=== PATIENT | male | born 1985 | race Caucasian/White ===

== ENCOUNTER 2016-11-28 16:16 | Emergency (ER) | payer BC ==
--- NOTE | 2016-11-28 17:08 | ER Document Report ---
ED Neck/Back Problem <PEGGY WALTON - Last Filed: 11/28/16 21:57> - General Time seen by provider: 16:30 Mode of Arrival: Ambulatory Information source: Patient TRAVEL OUTSIDE OF THE [place] IN LAST 30 DAYS: No - HPI Patient complains to provider of: Pain, Upper back Onset: Other - See above note Where: Work Onset: Gradual Timing: Still present Quality of pain: Sharp, Throbbing Severity: Moderate Pain Level: 4 Context: Other - Cough off and on for 4 weeks Recent injury: Possibly Associated symptoms: Upper back pain Exacerbated by: Cough/deep breaths, Movement of trunk Relieved by: Nothing Similar symptoms previously: Yes Recently seen / treated by doctor: No <ANIKA ROQUE - Last Filed: 11/29/16 07:08> - General Chief Complaint: Back Pain Stated Complaint: BACK PAIN Notes: 30-year-old male presents to ED for lower back pain on the left. He states a month ago he was diagnosed with flu and was coughing for week and had a start stomach virus and was vomiting for week then he got a cold again and was coughing for week so now he's been coughing or vomiting for the last 4 weeks and his back is been hurting off and on he states today when he coughed real hard he felt a large pop in his left lower back which took him to the floor with pain. (ANIKA ROQUE) - Related Data Allergies/Adverse Reactions: No Known Allergies Allergy (Unverified 11/28/16 19:35) Past Medical History - General Information source: Patient - Social History Smoking Status: Former Smoker Cigarette use (# per day): No - states he vaps at times Chew tobacco use (# tins/day): No Smoking Education Provided: No Frequency of alcohol use: Social Drug Abuse: None Occupation: mechanical design Lives with: Family Family History: DM, Hyperlipidemia, Hypertension, Malignancy, Thyroid Disfunction Patient has suicidal ideation: No - Past Medical History Cardiac Medical History: Reports: Hx Hypertension Pulmonary Medical History: Reports: Hx Asthma EENT Medical History: Reports: None Neurological Medical History: Reports: None Endocrine Medical History: Reports: None Renal/ Medical History: Reports: None Malignancy Medical History: Reports None GI Medical History: Reports: None Musculoskeltal Medical History: Reports Hx Musculoskeletal Trauma - Right third finger Skin Medical History: Reports None Psychiatric Medical History: Reports: None Traumatic Medical History: Reports: Hx Fractures - Right third finger Infectious Medical History: Reports: None Past Surgical History: Reports: Hx Abdominal Surgery - LAP-BAND and then revision of a lap band, Hx Orthopedic Surgery - Knee surgery - Immunizations Hx Diphtheria, Pertussis, Tetanus Vaccination: Yes <ANIKA ROQUE - Last Filed: 11/29/16 07:08> Review of Systems - Review of Systems Constitutional: No symptoms reported EENT: Nose discharge, Sinus discharge Cardiovascular: No symptoms reported Respiratory: Cough Gastrointestinal: No symptoms reported Genitourinary: No symptoms reported Male Genitourinary: No symptoms reported Musculoskeletal: Back pain - Left mid back pain, Muscle pain Skin: No symptoms reported Hematologic/Lymphatic: No symptoms reported Neurological/Psychological: No symptoms reported -: Yes All other systems reviewed and negative <ANIKA ROQUE - Last Filed: 11/29/16 07:08> Physical Exam - Vital signs Interpretation: Hypertensive - 162/108, Tachycardic - 108, Tachypneic - 26, Other - O2 sat 96% - General General appearance: Appears well, Alert - HEENT Head: Normocephalic, Atraumatic Eyes: Normal Pupils: PERRL - Respiratory Respiratory status: No respiratory distress Chest status: Nontender Breath sounds: Normal Chest palpation: Normal - Cardiovascular Rhythm: Regular Heart sounds: Normal auscultation Murmur: No - Abdominal Inspection: Normal Distension: No distension Bowel sounds: Normal Tenderness: Nontender Organomegaly: No organomegaly - Back Back: Normal, Tender - Mid back tenderness when palpated he yells out that the pain is severe.. No: Deformity/step-off, CVA tenderness, Vertebra tenderness, Scars, Scoliosis, Wounds - Extremities General upper extremity: Normal inspection, Nontender, Normal color, Normal ROM , Normal temperature General lower extremity: Normal inspection, Nontender, Normal color, Normal ROM , Normal temperature, Normal weight bearing. No: Ivon's sign - Neurological Neuro grossly intact: Yes Cognition: Normal Orientation: AAOx4 Breanna Coma Scale Eye Opening: Spontaneous [place] Coma Scale Verbal: Oriented Breanna Coma Scale Motor: Obeys Commands Breanna Coma Scale Total: 15 Speech: Normal Motor strength normal: LUE, RUE, LLE, RLE Sensory: Normal - Psychological Associated symptoms: Normal affect, Normal mood - Skin Skin Temperature: Warm Skin Moisture: Dry Skin Color: Normal <ANIKA ROQUE - Last Filed: 11/29/16 07:08> - Vital signs Vitals: Temp Pulse BP Pulse Ox 97.9 F 123 H 167/126 H 96 11/28/16 16:21 11/28/16 16:21 11/28/16 16:21 11/28/16 16:21 Course - Diagnostic Test Radiology reviewed: Image reviewed, Reports reviewed - IMPRESSION: Somewhat limited study as noted above. No definite evidence for pulmonary embolic disease. No acute consolidations or pleural effusions are identified. Other findings as noted above <PEGGY WALTON - Last Filed: 11/28/16 21:57> Discharge <PEGGY WALTON - Last Filed: 11/28/16 21:57> <ANIKA ROQUE - Last Filed: 11/29/16 07:08> - Discharge Clinical Impression: Cough, Elevated blood pressure reading, Muscle spasm Back pain Qualifiers: Back pain location: thoracic back pain Chronicity: acute Back pain laterality: left Qualified Code(s): M54.6 - Pain in thoracic spine Condition: Stable Disposition: HOME, SELF-CARE Instructions: Oral Narcotic Medication ([facility] / [facility]), Muscle Relaxers ([facility] / [facility]), Family Physicians / Practices Additional Instructions: *You have been evaluated for back pain, muscle spasm *Take medication as prescribed *Rest *Follow up with a primary care provider within one week for recheck *Return to ED for worsening condition, changes, needs, trouble breathing, concerns Left upper back pain that was sudden when coughing Muscle Strain You have strained a muscle -- torn the fibers within the muscle. This often occurs with strenuous exertion, or during an injury that suddenly stretches the muscle. The seriousness of a strain varies. Some strains heal within days, others cause problems for months. X-rays cannot show a muscle strain. X-rays are taken only if symptoms suggest that a fracture could be present. The usual treatment of a muscle strain is rest and ice packs. Sometimes, a sling, splint, or crutches may be necessary to rest the muscle. The muscle can be used again once pain subsides. Severe strains require a special exercise and stretching program to prevent permanent stiffness and disability. Your doctor will advise you if this will be necessary. Call the doctor immediately if pain or swelling becomes severe, or if numbness or discoloration develop. ORAL NARCOTIC MEDICATION: You have been given a prescription for pain control. This medication is a narcotic. It's best taken with food, as nausea can result if taken on an empty stomach. Don't operate machinery or drive within six hours of taking this medication. Do not combine this medicine with alcohol, or with any medication which can cause sedation (such as cold tablets or sleeping pills) unless you get permission from the physician. Narcotics tend to cause constipation. If possible, drink plenty of fluids and eat a diet high in fiber and fruits. Please be aware that prescription narcotics also have the potential for abuse. People become addicted to these medications because of the general sense of wellbeing that they induce. This feeling along with a significant reduction in tension, anxiety, and aggression provides a stimulating seductive quality to these drugs. Once your pain is under control, we encourage you to discard your unused narcotics. MUSCLE RELAXERS: Muscle relaxing medications are usually prescribed for acute muscle spasm or injury to the neck and back. They are often combined with antiinflammatory pain medication for increased relief. You may stop the muscle relaxer when the pain and stiffness have improved. Start the medication again if spasms recur. Muscle relaxers may cause drowsiness, especially with the first dose. Do not operate machinery or drive while under the effects of the medication. Most muscle relaxers last up to 24 hours. Do not combine the medication with alcohol. ICE PACKS: Apply ice packs frequently against the painful area. Many different schedules are recommended, such as "20 minutes on, 20 minutes off" or "one hour ice, two hours rest." If you need to work, you may need to go longer between ice treatments. You should plan to have the area ice packed AT LEAST one fourth of the time. The ice should be applied over the wrap, tape, or splint, or over a layer of cloth -- not directly against the skin. Some ice bags have a built-in cloth and can be put directly on the skin. WARM PACKS: After approximately two days, apply gentle heat (such as a heating pad or hot water bottle) for about 20 to 30 minutes about every two hours -- at least four times daily. Warmth and elevation will help you make a more rapid recovery , and will ease the pain considerably. Do not use HOT heat, and never apply heat for longer than 30 minutes. The continuous heat can invisibly damage skin and muscles -- even when no burn is seen on the surface. Damaged muscles can make you MORE sore. FOLLOW-UP CARE: If you have been referred to a physician for follow-up care, call the physician s office for an appointment as you were instructed or within the next two days. If you experience worsening or a significant change in your symptoms, notify the physician immediately or return to the Emergency Department at any time for re-evaluation. Prescriptions: Cyclobenzaprine HCl [Flexeril 10 Mg Tablet] 10 mg PO TID #30 tablet Oxycodone HCl/Acetaminophen [Percocet 5-325 mg Tablet] 1 - 2 tab PO ASDIR PRN # 15 tablet PRN Reason: Forms: Elevated Blood Pressure, Return to Work
[2016-11-28] MEDS ORDERED: OXYCODONE-ACETAMINOPHEN 5-325 MG TABLET PO ONE (17:55)
[2016-11-28] MEDS ORDERED: MORPHINE SULFATE 10 MG/ML INJ IV ONE (19:47)
[2016-11-28] MEDS ORDERED: DIAZEPAM INJ 10 MG/2 ML DISP.SYRIN IV ONE ×2 (21:13→21:57)
[2016-11-28 23:40] VITALS: BP 129/79
== END 2016-11-28 23:14 | disposition home or self-care (01) ==
LOC: ER 16:16
DX: M54.6 Pain in thoracic spine (principal); M62.838 Other muscle spasm; R05 Cough; I10 Essential (primary) hypertension; R00.0 Tachycardia, unspecified; R06.82 Tachypnea, not elsewhere classified; R09.81 Nasal congestion; J45.909 Unspecified asthma, uncomplicated; Z87.891 Personal history of nicotine dependence
CPT/HCPCS: 96376; 99284; 96374; 96375; 71020; 71275; J3360; J2270